=== PATIENT | female | born 1950 ===

== ENCOUNTER 2024-07-02 12:20 | Emergency (ER) | payer SELFPAY ==
[2024-07-02 13:23] VITALS: BP 127/73; PULSE 84; RESP 16; TEMP 36.4; O2SAT 99; BMI 36.6
== END 2024-07-02 15:55 | disposition left against medical advice (07) ==
PROVIDERS: Emergency Provider Emergency Medicine
DX: Z53.21 Procedure and treatment not carried out due to patient leaving prior to being seen by health care provider (principal)
CPT/HCPCS: 81001; 87631